=== PATIENT | male | born 1990 | race Two or more races ===

== ENCOUNTER 2023-03-06 05:17 | Day surgery (SDC) | payer OTHER ==
[2023-03-06] MEDS ORDERED: NEXIUM 24HR20 M1 PO (08:02)
== END 2023-03-06 09:50 | disposition home or self-care (01) ==
LOC: AMB-ENDOS 05:17
PROVIDERS: ATTEND Surgery
DX: K29.50 Unspecified chronic gastritis without bleeding (principal); B96.81 Helicobacter pylori [H. pylori] as the cause of diseases classified elsewhere; E66.09 Other obesity due to excess calories; R10.13 Epigastric pain; Z20.822 Contact with and (suspected) exposure to COVID-19